=== PATIENT | female | born 1935 | race Caucasian/White ===

== ENCOUNTER 2020-07-20 08:37 | Outpatient (CLI) | payer MEDICARE, OTHER ==
--- NOTE | 2020-07-20 09:13 | RAD ---
XR Chest Pa Lat STANDARD HISTORY: Chest pain COMPARISON: None FINDINGS: The heart size is normal. The lungs are well expanded without focal areas of consolidation, pneumothorax or pleural effusions. 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 Old left-sided rib fractures are present. IMPRESSION: No radiographic evidence of acute cardiopulmonary process.
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
== END 2020-07-20 08:38 | disposition home or self-care (01) ==
LOC: BICRAD 08:37
PROVIDERS: ATTEND Family Medicine
DX: R07.89 Other chest pain (principal); M54.14 Radiculopathy, thoracic region; Z98.890 Other specified postprocedural states
CPT/HCPCS: 36415; 71046; 72072; 80053; 81001; 82607; 82746; 84439; 84443; 84481; 85025